=== PATIENT | female | born 1935 | race Caucasian/White ===

== ENCOUNTER 2017-07-31 10:15 | Inpatient (IN) | payer OTHER, MEDICARE ==
[~2017-07-31] VITALS: Ht 160 cm; Wt 50.3 kg
[~2017-07-31 10:15] MED LIST: ADVAIR HFA120 INHAL1 IH; AMBIEN10 MG PO; ASCORBIC ACID500 M3 PO; CITRACAL + D E1 EACH PO; FOLIC ACID1 MG PO; LEVAQUIN500 MG PO; LIDOCAINE700 MG TD; LOPRESSOR50 MG PO; LOVENOX40 MG/0.4 SC; PREDNISONE10 MG PO; PROTONIX40 MG PO; SENNA-TIME S T1 EACH PO; SPIRIVA1 INHALATI IH; THERAGRAN1 TABLET PO; TRAMADOL HCL50 MG PO; TRIPLE ANTIB28.35 GM TP; VITAMIN D2000 UNIT PO; ZOCOR20 MG PO; ZOLOFT50 MG PO
[2017-07-31 11:09] LABS: MCHC 32.8 G/DL (30.0-36.0); MCV 91.5 FL (83-99); MEAN PLAT.VOLUME 8.5 uM^3 (9.5-12.4); PLATELET COUNT 217 K/uL (156-360); RBC DIS.WIDTH-SD 43.3 % (39-53); WHITE BLOOD COUNT 12.2 K/uL (4.1-10.2)
[2017-07-31 11:17] LABS: CHLORIDE 107 mEq/L (99-109); POTASSIUM 4.6 mEq/L (3.7-5.4); SODIUM 142 mEq/L (136-147)
[2017-07-31 11:20] LABS: GLUCOSE 123 mg/dL (70-99)
[2017-07-31 11:21] LABS: ANION GAP 13 MEQ/L (2-14); TOTAL BILIRUBIN 0.6 mg/dL (0.0-1.0)
[2017-07-31 11:23] LABS: ALKALINE PHOSPHATASE 76 IU/L (3-129); GFR ESTIMATE (CALCULATED) 46 mL/min/
[2017-07-31 11:24] LABS: UREA NITROGEN (BUN) 31 mg/dL (9-23)
[2017-07-31 13:54] LABS: BILIRUBIN NEGATIVE; BLOOD NEGATIVE; COLOR YELLOW ((YELLOW)); GLUCOSE (STRIP) NEGATIVE; KETONES NEGATIVE; LEUKOCYTES NEGATIVE; NITRITE NEGATIVE; PROTEIN (STRIP) 30; SPECIFIC GRAVITY 1.021 (1.000-1.030); UROBILINOGEN 0.2 MG/DL (0.2-1.0)
[2017-07-31 13:57] LABS: ADD MIUA? NO; UCUL ADDED? NO
[2017-07-31] MEDS ORDERED: ZOLPIDEM TARTRA10 MG PO (17:47)
[2017-07-31] MEDS ORDERED: HYDROCODON-ACE1 EAC7 PO (17:48)
[2017-07-31] MEDS ORDERED: APRESOLINE50 MG PO (17:50)
[2017-07-31] MEDS ORDERED: METOPROLOL TART25 MG PO (17:50)
[2017-07-31] MEDS ORDERED: DICLOFENAC SOD100 G1 TP (17:51)
[2017-07-31] MEDS ORDERED: BIOFREEZE TP (17:53)
[2017-07-31 19:21] VITALS: BP 167/96
[2017-07-31 23:08] VITALS: BP 167/83
[2017-08-01 04:16] VITALS: BP 164/81
[2017-08-01 06:56] LABS: HEMATOCRIT 41.5 % (36.0-46.0); MCH 29.3 PG (29.0-34.0); MCHC 32.3 G/DL (30.0-36.0); MCV 90.6 FL (83-99); MEAN PLAT.VOLUME 8.8 uM^3 (9.5-12.4); PLATELET COUNT 188 K/uL (156-360); RBC DIS.WIDTH-SD 42.5 % (39-53); RED BLOOD COUNT 4.58 M/uL (3.80-5.20); WHITE BLOOD COUNT 11.3 K/uL (4.1-10.2)
[2017-08-01 07:22] LABS: ANION GAP 11 MEQ/L (2-14); CHLORIDE 108 MEQ/L (99-109); GFR ESTIMATE (CALCULATED) 38 mL/min/; GLUCOSE 133 mg/dL (70-99); POTASSIUM 4.8 MEQ/L (3.7-5.4); SAMPLE HEMOLYSIS CHECK 0; SAMPLE ICTERIC CHECK 0; SAMPLE LIPEMIA CHECK 0; SODIUM 144 MEQ/L (136-147); UREA NITROGEN (BUN) 41 mg/dL (9-23)
[2017-08-01 07:57] VITALS: BP 148/80
[2017-08-01 11:56] VITALS: BP 123/59
[2017-08-01 15:35] VITALS: BP 122/59
[2017-08-02 00:18] VITALS: BP 128/58
[2017-08-02 04:51] VITALS: BP 134/63
[2017-08-02 07:10] LABS: HEMATOCRIT 34.8 % (36.0-46.0); MCH 30.5 PG (29.0-34.0); MCHC 32.8 G/DL (30.0-36.0); MEAN PLAT.VOLUME 8.9 uM^3 (9.5-12.4); PLATELET COUNT 134 K/uL (156-360); RBC DIS.WIDTH-CV 13.2 % (11.8-14.6); RBC DIS.WIDTH-SD 44.7 % (39-53); RED BLOOD COUNT 3.74 M/uL (3.80-5.20); WHITE BLOOD COUNT 5.7 K/uL (4.1-10.2)
[2017-08-02 07:41] LABS: ANION GAP 9 MEQ/L (2-14); CHLORIDE 112 MEQ/L (99-109); GFR ESTIMATE (CALCULATED) 51 mL/min/; POTASSIUM 4.1 MEQ/L (3.7-5.4); SAMPLE HEMOLYSIS CHECK 0; SAMPLE ICTERIC CHECK 0; SAMPLE LIPEMIA CHECK 0; SODIUM 142 MEQ/L (136-147); UREA NITROGEN (BUN) 32 mg/dL (9-23)
[2017-08-02 07:47] LABS: GLUCOSE 92 mg/dL (70-99)
[2017-08-02 08:33] VITALS: BP 140/70
[2017-08-02 12:22] VITALS: BP 125/62
[2017-08-02 16:48] VITALS: BP 118/82
== END 2017-08-02 18:08 | disposition home or self-care (01) | DRG 395 ==
LOC: EME 10:15 → EDOF 15:52 → 3EAST 15:52 → ENRESERV 15:53 → EDOF 16:04 → ENRESERV 17:25 → 3EAST 19:15
PROVIDERS: Internal Medicine
DX: K43.5 Parastomal hernia without obstruction or gangrene (principal); I10 Essential (primary) hypertension; F32.9 Major depressive disorder, single episode, unspecified; K21.9 Gastro-esophageal reflux disease without esophagitis; G47.00 Insomnia, unspecified; M79.7 Fibromyalgia; Z93.3 Colostomy status; I71.9 Aortic aneurysm of unspecified site, without rupture; M81.0 Age-related osteoporosis without current pathological fracture; Z86.73 Personal history of transient ischemic attack (TIA), and cerebral infarction without residual deficits; I25.10 Atherosclerotic heart disease of native coronary artery without angina pectoris; E78.5 Hyperlipidemia, unspecified; I25.2 Old myocardial infarction; Z87.891 Personal history of nicotine dependence; Z87.442 Personal history of urinary calculi
CPT/HCPCS: 71010; 74176; 80048; 80053; 81003; 85027; 90686; 99281; 99285; C9113; J1644; J1885; J2270; J2405; J7030

== ENCOUNTER 2017-08-03 16:06 | Inpatient (IN) | payer OTHER, MEDICARE ==
[~2017-08-03] VITALS: Ht 152.4 cm; Wt 51.9 kg
[~2017-08-03 16:06] MED LIST changes: +APRESOLINE50 MG PO; +BIOFREEZE TP; +DICLOFENAC SOD100 G1 TP; +HYDROCODON-ACE1 EAC7 PO; +METOPROLOL TART25 MG PO; +ZOLPIDEM TARTRA10 MG PO
[2017-08-03 17:10] LABS: HEMATOCRIT 39.7 % (36.0-46.0); MCH 30.4 PG (29.0-34.0); MCV 92.1 FL (83-99); MEAN PLAT.VOLUME 8.5 uM^3 (9.5-12.4); RED BLOOD COUNT 4.31 M/uL (3.80-5.20); WHITE BLOOD COUNT 8.8 K/uL (4.1-10.2)
[2017-08-03 17:12] LABS: PLATELET COUNT 235 K/uL (156-360)
[2017-08-03 17:25] LABS: CHLORIDE 110 mEq/L (99-109); POTASSIUM 4.5 mEq/L (3.7-5.4); SODIUM 139 mEq/L (136-147)
[2017-08-03 17:28] LABS: GLUCOSE 94 mg/dL (70-99)
[2017-08-03 17:29] LABS: ANION GAP 9 MEQ/L (2-14)
[2017-08-03 17:31] LABS: ALKALINE PHOSPHATASE 65 IU/L (3-129); GFR ESTIMATE (CALCULATED) 46 mL/min/; TOTAL BILIRUBIN 0.4 mg/dL (0.0-1.0)
[2017-08-03 17:32] LABS: UREA NITROGEN (BUN) 24 mg/dL (9-23)
[2017-08-04 04:19] VITALS: BP 165/72
[2017-08-04 07:00] VITALS: BP 152/84
[2017-08-04 07:43] LABS: HEMATOCRIT 32.7 % (36.0-46.0); MCH 30.6 PG (29.0-34.0); MCHC 33.3 G/DL (30.0-36.0); MCV 91.9 FL (83-99); RBC DIS.WIDTH-CV 13.1 % (11.8-14.6); RBC DIS.WIDTH-SD 43.8 % (39-53); RED BLOOD COUNT 3.56 M/uL (3.80-5.20); WHITE BLOOD COUNT 4.6 K/uL (4.1-10.2)
[2017-08-04 07:59] LABS: ANION GAP 8 MEQ/L (2-14); CHLORIDE 111 MEQ/L (99-109); GFR ESTIMATE (CALCULATED) > 59 mL/min/; GLUCOSE 113 mg/dL (70-99); POTASSIUM 3.8 MEQ/L (3.7-5.4); SAMPLE HEMOLYSIS CHECK 0; SAMPLE ICTERIC CHECK 0; SAMPLE LIPEMIA CHECK 0; SODIUM 140 MEQ/L (136-147); UREA NITROGEN (BUN) 18 mg/dL (9-23)
[2017-08-04 08:05] LABS: MEAN PLAT.VOLUME 8.9 uM^3 (9.5-12.4); PLAT.SUFFICIENCY DECREASED
[2017-08-04 08:15] LABS: ADD MIUA? NO; BILIRUBIN NEGATIVE; BLOOD NEGATIVE; COLOR YELLOW ((YELLOW)); GLUCOSE (STRIP) NEGATIVE; KETONES NEGATIVE; LEUKOCYTES NEGATIVE; NITRITE NEGATIVE; PROTEIN (STRIP) NEGATIVE; SPECIFIC GRAVITY 1.014 (1.000-1.030); UCUL ADDED? NO; UROBILINOGEN 0.2 MG/DL (0.2-1.0)
[2017-08-04 08:24] LABS: PLATELET COUNT 132 K/uL (156-360)
[2017-08-04 11:00] VITALS: BP 190/81
[2017-08-04 16:05] VITALS: BP 150/66
[2017-08-05] VITALS (7 sets, daily range): BP systolic 147–200; BP diastolic 73–90
[2017-08-06 04:06] VITALS: BP 124/61
[2017-08-06 07:08] VITALS: BP 132/72
[2017-08-06 15:16] VITALS: BP 175/81
[2017-08-06 17:32] VITALS: BP 148/69
[2017-08-06 19:00] VITALS: BP 112/74
[2017-08-07 00:26] VITALS: BP 125/69
[2017-08-07 04:00] VITALS: BP 112/75
[2017-08-07 08:21] VITALS: BP 151/75
== END 2017-08-07 14:16 | disposition home health service (06) | DRG 395 ==
LOC: EME 16:06 → EDOF 19:45 → 2EAST 19:45 → ENRESERV 20:13 → 2EAST 08-04 00:15 → ENRESERV 08-04 00:15 → 2EAST 08-07 14:16
PROVIDERS: Surgery
DX: K43.3 Parastomal hernia with obstruction, without gangrene (principal); I10 Essential (primary) hypertension; E78.00 Pure hypercholesterolemia, unspecified; K21.9 Gastro-esophageal reflux disease without esophagitis; F32.9 Major depressive disorder, single episode, unspecified; I25.2 Old myocardial infarction; Z93.2 Ileostomy status; Z86.73 Personal history of transient ischemic attack (TIA), and cerebral infarction without residual deficits; Z87.891 Personal history of nicotine dependence; Z87.442 Personal history of urinary calculi
CPT/HCPCS: 71010; 74000; 74022; 80048; 80053; 81003; 83605; 85027; 99281; 99285; J1200; J1650; J2270; J2405; J3480; J7030